=== PATIENT | female | born 1965 | race Caucasian/White ===

== ENCOUNTER 2022-02-21 12:40 | Emergency (ER) | payer MEDICAID, OTHER ==
[2022-02-21 12:59] VITALS: BP 166/96
[2022-02-21] MEDS ORDERED: LIDOCAINE PATCH 5% TOP STA (14:41)
--- NOTE | 2022-02-21 14:43 | ED Physician Documentation ---
PD HPI UPPER EXT INJURY - Stated complaint Stated Complaint: L ARM PX - Chief complaint Chief Complaint: Ext Problem - History obtained from History obtained from: Patient - Additonal information Additional information: Patient is a 56-year-old female presenting for evaluation of left shoulder pain that has been present for 11 days. She was trying to move her [place] into a storage shed when it yanked her arm. She has had pain with range of motion. She denies numbness or tingling. She denies injury elsewhere.Pain is worse with certain movements. Review of Systems Constitutional: denies: Fever Nose: denies: Congestion Cardiac: denies: Chest pain / pressure Respiratory: denies: Dyspnea GI: denies: Abdominal Pain : denies: Dysuria Musculoskeletal: reports: Joint pain Neurologic: denies: Headache PD PAST MEDICAL HISTORY - Present Medications Home Medications: Ambulatory Orders Medication Instructions Recorded Confirmed Lidocaine Patch 5% [Lidoderm Patch] 1 patch TOP DAILY PRN #10 patch 02/21/22 - Allergies Allergies/Adverse Reactions: Allergies Allergy/AdvReac Type Severity Reaction Status Date / Time No Known Drug Allergies Allergy Verified 02/21/22 13:00 PD ED PE NORMAL - General General: Alert and oriented X 3, No acute distress, Well developed/nourished - HEENT HEENT: Atraumatic - Neck Neck: Supple, no meningeal sign - Cardiac Cardiac: Strong equal pulses - Respiratory Respiratory: No respiratory distress - Derm Derm: Warm and dry - Extremities Extremities: No deformity, No edema. No: No tenderness to palpate (Left shoulder tenderness), Normal ROM s pain (Pain with abduction past 90 degrees, able to place her left arm behind her back as well as touch opposite shoulder, radial pulses intact, no bony tenderness to left humerus or distally) - Neuro Neuro: No motor deficit, No sensory deficit Results - Vitals Vitals: Oxygen O2 Source Room air PD MEDICAL DECISION MAKING - ED course Complexity details: reviewed results, re-evaluated patient ED course: Patient presenting for evaluation of left shoulder pain. Neurovascularly intact with no signs of deformity or injury on exam. No chest pain or radiating pain. X-rays negative for fracture dislocation.Patient counseled on Continuing with [facility] of care, need for follow-up and concerning symptoms to return for. Departure - Departure Disposition: 01 Home, Self Care Clinical Impression: Left shoulder strain Qualifiers: Encounter type: initial encounter Qualified Code(s): S46.912A - Strain of unspecified muscle, fascia and tendon at shoulder and upper arm level, left arm, initial encounter Condition: Stable Instructions: ED Sprain Shoulder Prescriptions: Lidocaine Patch 5% [Lidoderm Patch] 1 patch TOP DAILY PRN #10 patch PRN Reason: pain Comments: I do not see a fracture out of place bone on your shoulder x-ray. However there are other structures I can be injured in the shoulder joint including ligaments, tendons and muscles. You can use anti-inflammatory medications and lidocaine patches for Pain. I would also recommend ice. I would continue to try and move your shoulder around in all directions to prevent it from getting frozen. I would also recommend close follow-up with your primary care doctor if your symptoms or not improving over the next week. Discharge Date/Time: 02/21/22 14:50
--- NOTE | 2022-02-21 14:55 | XRAY Report ---
PROCEDURE: Shoulder 3 View LT INDICATIONS: L shoulder pain x 11 days TECHNIQUE: 3 views of the shoulder were acquired. COMPARISON: None. FINDINGS: Bones: No fractures or dislocations. No suspicious bony lesions. Visualized ribs appear intact. M ild acromioclavicular degenerative narrowing. Soft tissues: No suspicious soft tissue calcifications. IMPRESSION: No visualized acute fracture or dislocation. However, occult injury cannot be excluded. Recommend short interval imaging follow-up in 7-10 days as clinically indicated for additional evalua tion. Reviewed by: Luzma Borges MD on 02/21/2022 2:54 PM PDT Approved by: Luzma Borges MD on 02/21/2022 2:54 PM PDT Station ID: [id number]
== END 2022-02-21 14:50 | disposition home or self-care (01) ==
LOC: ED 12:40
DX: S46.912A Strain of unspecified muscle, fascia and tendon at shoulder and upper arm level, left arm, initial encounter (principal); X50.0XXA Overexertion from strenuous movement or load, initial encounter; Y93.89 Activity, other specified; Y92.89 Other specified places as the place of occurrence of the external cause
CPT/HCPCS: 73030; 99282; 99283; A9270